=== PATIENT | female | born 1955 | race Caucasian/White ===

== ENCOUNTER 2017-12-15 13:54 | Emergency (ER) | payer BC, OTHER ==
[~2017-12-15] VITALS: Ht 167.6 cm; Wt 79.4 kg
--- NOTE | ~2017-12-15 | EKG ---
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: [facility] : 1955 Requested By: Zhane Jennings Order Number: [id number] MD: Clifford Curry Measurements Intervals [place] Rate: 76 P: 22 NE: 150 QRS: -37 QRSD: 92 T: 34 QT: 393 QTc: 442 Interpretive Statements Sinus rhythm Left ventricular hypertrophy Septal infarct, age indeterminate No previous ECG available for comparison Electronically Signed On 12-16-2017 8:33:31 CDT by Clifford Curry [email or web address] <ELECTRONICALLY SIGNED> By: Clifford Curry MD, [facility] 12/16/17 0833 1418 1418 Clifford Curry MD, FACC /EPI
[2017-12-15 14:55] LABS: ABSOLUTE NEUTROPHILS 7.6 thou/uL (1.4-8.2); BASOPHILS 1.1 % (0.0-2.0); EOSINOPHILS 2.2 % (0.0-3.0); HEMATOCRIT 42.6 % (37.0-47.0); HEMOGLOBIN 14.5 gm/dL (12.0-15.0); LYMPHOCYTES 24.4 % (24.0-44.0); MCH 30.1 pg (26.0-34.0); MCV 88.5 fL (80.0-100.0); MONOCYTES 5.5 % (1.0-8.0); PLATELET COUNT 263 thou/uL (150-400); POLYS 66.8 % (36.0-66.0); RBC 4.81 mil/uL (4.20-5.00); RDW 14.2 % (10.5-14.5); WBC 11.3 thou/uL (4.0-11.0)
[2017-12-15 15:05] LABS: ANION GAP 7 mmol/L (7-16); BUN 10 mg/dL (7-18); CALCIUM 9.4 mg/dL (8.5-10.1); CHLORIDE 100 mmol/L (98-107); CO2 30 mmol/L (21-32); CREATININE 0.9 mg/dL (0.6-1.0); GLUCOSE 126 mg/dL (74-106); POTASSIUM 3.1 mmol/L (3.5-5.1); SODIUM 137 mmol/L (136-145)
[2017-12-15 15:13] LABS: ALBUMIN 3.9 g/dL (3.4-5.0); DIRECT BILIRUBIN 0.1 mg/dL (<0.1-0.3); LIPASE 139 U/L (73-393); SGOT 20 U/L (15-37); SGPT 28 U/L (30-65); TOTAL BILIRUBIN 0.8 mg/dL (<0.1-1.0); TOTAL PROTEIN 7.4 g/dL (6.4-8.2); TROPONIN-I < 0.04 ng/mL (<0.06)
[2017-12-15 15:30] LABS: URINE BILIRUBIN NEGATIVE (Negative); URINE BLOOD NEGATIVE (Negative); URINE CLARITY CLEAR; URINE COLOR YELLOW; URINE GLUCOSE-RANDOM* NEGATIVE (Negative); URINE KETONES NEGATIVE (Negative); URINE LEUKOCYTES NEGATIVE (Negative); URINE NITRITE NEGATIVE (Negative); URINE PROTEIN (DIPSTICK) NEGATIVE (Negative); URINE UROBILINOGEN 0.2 E.U./dl (0.2-1.0)
[2017-12-15 15:44] VITALS: BP 193/91
[2017-12-15] MEDS ORDERED: ZOFRAN ODT4 MG PO (15:57)
== END 2017-12-15 16:27 | disposition left against medical advice (07) ==
LOC: ER 13:54
PROVIDERS: Emergency Medicine
DX: K80.20 Calculus of gallbladder without cholecystitis without obstruction (principal)